=== PATIENT | male | born 1990 | race Caucasian/White ===

== ENCOUNTER 2017-01-26 13:31 | Emergency (ER) | payer MEDICAID ==
[~2017-01-26] VITALS: Ht 175.3 cm; Wt 54.7 kg
[2017-01-26] MEDS ORDERED: SODIUM CHLORIDE 0.9% 1,000 ML IV ONE (13:45)
[2017-01-26] MEDS ORDERED: DIPH,PERTUSS(ACELL),TET VAC/PF 0.5 ML IM-VACC ONE ×2 (14:00→15:38)
[2017-01-26] MEDS ORDERED: SODIUM CHLORIDE 0.9% 1,000ML IVBOLUS ONE (14:00)
[2017-01-26] MEDS ORDERED: ONDANSETRON 2MG/ML, 2ML IVPush ONE (14:00)
[2017-01-26] MEDS ORDERED: LORazepam 2 MG/ML, 1ML IVPush ONE (14:00)
[2017-01-26] MEDS ORDERED: cloniDINE 0.1MG PATCH TD SCH (15:30)
[2017-01-26 15:36] LABS: BLOOD UREA NITROGEN 9 mg/dL (7-18)
[2017-01-26 17:25] VITALS: BP 124/77
== END 2017-01-26 17:28 | disposition home or self-care (01) ==
LOC: ED 16:20
DX: F11.23 Opioid dependence with withdrawal (principal); N30.00 Acute cystitis without hematuria
CPT/HCPCS: 36415; 70450; 80048; 81001; 82040; 85025; 87086; 90471; 90715; 93005

== ENCOUNTER 2017-05-03 23:14 | Emergency (ER) | payer MEDICAID ==
[~2017-05-03] VITALS: Ht 175.3 cm; Wt 60.0 kg
[2017-05-03] MEDS ORDERED: LIDOCAINE 1%, 20ML INFIL ONE (23:30)
[2017-05-04] MEDS ORDERED: LIDOCAINE 1%, 20ML ONE (00:38)
[2017-05-04] MEDS ORDERED: BACITRACIN ZINC OINT 500U/GM, 0.9 GM ONE (02:08)
[2017-05-04 04:33] VITALS: BP 115/73
== END 2017-05-04 04:35 | disposition home or self-care (01) ==
LOC: ED 23:48
DX: S06.0X9A Concussion with loss of consciousness of unspecified duration, initial encounter (principal); S01.111A Laceration without foreign body of right eyelid and periocular area, initial encounter; S01.112A Laceration without foreign body of left eyelid and periocular area, initial encounter; S01.412A Laceration without foreign body of left cheek and temporomandibular area, initial encounter; Y93.E1 Activity, personal bathing and showering; W01.0XXA Fall on same level from slipping, tripping and stumbling without subsequent striking against object, initial encounter; Y99.8 Other external cause status; Y92.091 Bathroom in other non-institutional residence as the place of occurrence of the external cause
CPT/HCPCS: 12011; 13131; 70450; 70486; 72125; 99285; J3490

== ENCOUNTER 2017-05-05 15:42 | Emergency (ER) | payer MEDICAID ==
[~2017-05-05] VITALS: Ht 175.3 cm; Wt 59.6 kg
[2017-05-05 15:44] VITALS: BP 130/74
== END 2017-05-05 17:38 | disposition left against medical advice (07) ==
LOC: ED 17:30
DX: Z53.21 Procedure and treatment not carried out due to patient leaving prior to being seen by health care provider (principal)

== ENCOUNTER 2018-04-07 17:04 | Emergency (ER) | payer MEDICAID ==
[~2018-04-07] VITALS: Ht 175.3 cm; Wt 58.9 kg
[~2018-04-07 17:04] MED LIST: KEPPRA
[2018-04-07 17:07] VITALS: BP 121/87
== END 2018-04-07 17:35 ==
LOC: ED 17:05
DX: S01.01XD Laceration without foreign body of scalp, subsequent encounter (principal); X58.XXXD Exposure to other specified factors, subsequent encounter
CPT/HCPCS: 99281